=== PATIENT | female | born 1965 | race Caucasian/White ===

== ENCOUNTER 2017-11-13 09:47 | Emergency (ER) | payer OTHER ==
[2017-11-13 10:05] VITALS: BP 133/72
[2017-11-13] MEDS ORDERED: predniSONE TAB* 20 MG PO ONE (11:16)
--- NOTE | 2017-11-13 11:17 | UC ---
Throat Pain/Nasal Miguel HPI - HPI Summary HPI Summary: 52 yo female with sore throat since yesterday no n/v/d severe pain with swallowing - History of Current Complaint Chief Complaint: UCRespiratory Stated Complaint: ST/SWOLLEN THROAT GLANDS Time Seen by Provider: 11/13/17 11:11 Hx Obtained From: Patient Hx Last Menstrual Period: n/a Onset/Duration: Gradual Onset, Lasting Days Severity: Moderate Pain Intensity: 6 Pain Scale Used: 0-10 Numeric Associated Signs & Symptoms: Positive: Fever - Epiglottits Risk Factors Epiglottis Risk Factors: Negative - Allergies/Home Medications Allergies/Adverse Reactions: Allergies Allergy/AdvReac Type Severity Reaction Status Date / Time tomato plants Allergy Coughing Uncoded 11/13/17 10:05 Home Medications: Home Medications Acetaminophen TAB* [Tylenol TAB*] 975 mg PO Q6H PRN 11/13/17 [History Confirmed 11/13/17] Ibuprofen TAB* [Motrin TAB* 400 MG] 400 mg PO Q6H PRN 11/13/17 [History Confirmed 11/13/17] Levothyroxine TAB* [Synthorid 112 MCG TAB*] 112 mcg PO DAILY 11/13/17 [History Confirmed 11/13/17] PMH/Surg Hx/FS Hx/Imm Hx Previously Healthy: Yes - Surgical History Surgical History: Yes Surgery Procedure, Year, and Place: hysterectomy. thyroidectomy - Family History Known Family History: Positive: Hypertension, Diabetes - pre-DM, Other - dad with aortic anerysm - Social History Alcohol Use: None Substance Use Type: None Smoking Status (MU): Never Smoked Tobacco - Immunization History Most Recent Influenza Vaccination: no Review of Systems Constitutional: Fever, Chills Skin: Negative Eyes: Negative ENT: Sore Throat Respiratory: Negative Cardiovascular: Negative Gastrointestinal: Negative Genitourinary: Negative Motor: Negative Neurovascular: Negative Musculoskeletal: Negative Neurological: Negative Psychological: Negative Is Patient Immunocompromised?: No All Other Systems Reviewed And Are Negative: Yes Physical Exam Triage Information Reviewed: Yes Appearance: Well-Appearing, No Pain Distress, Well-Nourished Vital Signs: Initial Vital Signs Temp 98.9 F 11/13/17 10:01 Pulse 74 11/13/17 10:01 Resp 16 11/13/17 10:01 BP 133/72 11/13/17 10:01 Pulse Ox 99 11/13/17 10:01 Vital Signs Reviewed: Yes Eyes: Positive: Conjunctiva Clear ENT: Positive: Hearing grossly normal, Pharyngeal erythema, TMs normal, Tonsillar swelling, Tonsillar exudate, Hoarse voice, Uvula midline. Negative: Nasal congestion, Nasal drainage, Trismus, Muffled voice Neck: Positive: Supple, Nontender, Enlarged Nodes @ - anterior cervica; Respiratory: Positive: Lungs clear, Normal breath sounds, No respiratory distress, No accessory muscle use Cardiovascular: Positive: RRR, No Murmur Neurological: Positive: Alert Psychological Exam: Normal Skin Exam: Normal Throat Pain/Nasal Course/Dx - Course Assessment/Plan: strep (+) - Differential Dx/Diagnosis Provider Diagnoses: strep throat Discharge - Discharge Plan Condition: Stable Disposition: HOME Prescriptions: Amoxicillin PO (*) [Amoxicillin 875 MG (*)] 875 mg PO BID #20 tab Prednisone 60 mg PO DAILY #6 tab Patient Education Materials: Strep Throat (ED) Referrals: Sunil Tripathi [Primary Care Provider] - 3 Days (if not better) Additional Instructions: recheck for new or worsening symptoms recheck in 3-4 days if not completely better
== END 2017-11-13 11:30 | disposition home or self-care (01) ==
LOC: UCCORT 09:47
DX: J02.0 Streptococcal pharyngitis (principal)
CPT/HCPCS: 87651; 99212; G0463; J7512